=== PATIENT | female | born 1940 | race Caucasian/White ===

== ENCOUNTER 2016-06-13 18:42 | Emergency (ER) | payer MEDICARE ==
[~2016-06-13] VITALS: Ht 152.4 cm; Wt 45.4 kg
[2016-06-13] MEDS ORDERED: LORAZEPAM 1 MG TABLET PO ONE (19:30)
[2016-06-14 04:00] VITALS: BP 118/98
== END 2016-06-14 07:46 | disposition home or self-care (01) ==
LOC: ER 18:47
DX: S16.1XXA Strain of muscle, fascia and tendon at neck level, initial encounter (principal); I10 Essential (primary) hypertension; I48.91 Unspecified atrial fibrillation; I34.1 Nonrheumatic mitral (valve) prolapse; Z95.0 Presence of cardiac pacemaker; M19.90 Unspecified osteoarthritis, unspecified site; Z90.710 Acquired absence of both cervix and uterus; Z98.890 Other specified postprocedural states; Z88.8 Allergy status to other drugs, medicaments and biological substances; Z88.6 Allergy status to analgesic agent; V49.50XA Passenger injured in collision with unspecified motor vehicles in traffic accident, initial encounter; Y93.89 Activity, other specified; Y92.413 State road as the place of occurrence of the external cause; Y99.8 Other external cause status
CPT/HCPCS: 99284; A4606; Z7610

== ENCOUNTER 2016-10-27 23:10 | Emergency (ER) | payer MEDICARE ==
[~2016-10-27] VITALS: Ht 152.4 cm; Wt 47.6 kg
[2016-10-27 23:12] VITALS: BP 146/87
--- NOTE | 2016-10-27 23:15 | NUR ---
76 YO FEMALE ALERT X 3. PT BIBA#102, PT C/O FEELING LIKE SHE IS BREATHING FAST AND HER HR IS FAST AND FEELING ANXIOUS. PT AMBULATED TO ER BED WITH STEADY GAIT, SKIN WARM AND DRY, RR EVEN AND UNLABORED. PT GOWNED, PLACED ON SOUND CONTROLLER. AWAITING ORDERS FROM PROVIDER
--- NOTE | 2016-10-27 23:32 | NUR ---
EMT AT BED SIDE FOR EKG
--- NOTE | 2016-10-27 23:33 | NUR ---
MD CORONA AT BED SIDE FOR EVAL
[2016-10-27] MEDS ORDERED: ALPRAZOLAM 0.25 MG TABLET ONE (23:38)
[2016-10-27] MEDS ORDERED: NITROGLYCERIN PACKET 1 GM PACKET ONE (23:38)
[2016-10-28] MEDS ORDERED: ALPRAZOLAM 0.25 MG TABLET PO ONE
[2016-10-28] MEDS ORDERED: NITROGLYCERIN PACKET 1 GM PACKET TD ONE
[2016-10-28 00:18] LABS: BASOPHILS # (AUTO) 0.1 /CMM (0.0-0.2); BASOPHILS % (AUTO) 1.2 % (0.0-2.0); EOSINOPHILS # (AUTO) 0.1 /CMM (0.0-0.7); EOSINOPHILS % (AUTO) 1.4 % (0.0-6.0); HEMATOCRIT 37 % (33-45); HEMOGLOBIN 12.2 g/dL (11.5-14.8); LYMPHOCYTES % (AUTO) 23.6 % (20.0-44.0); MEAN CORPUSCULAR HEMOGLOBIN 31 PG (26.0-33.0); MEAN CORPUSCULAR HGB CONC 33 g/dl (31.0-36.0); MEAN CORPUSCULAR VOLUME 93 fL (82-100); MONOCYTES # (AUTO) 0.3 /CMM (0.1-1.30); MONOCYTES % (AUTO) 8.2 % (2.0-12.0); NEUTROPHILS # (AUTO) 2.7 /CMM (1.8-8.9); NEUTROPHILS % (AUTO) 65.6 % (43.0-81.0); PLATELET COUNT (AUTO) 109 /CMM (150-450); RDW COEFFICIENT OF VARIATION 15.3 (11.5-15.0); RED BLOOD CELL COUNT(AUTO) 4.01 MIL/uL (4.0-5.2); WHITE BLOOD COUNT (AUTO) 4.1 K/uL (4.3-11.0)
--- NOTE | 2016-10-28 00:21 | NUR ---
PT REFUSED MEDICATION
[2016-10-28 00:27] LABS: CALCIUM, SERUM 9.2 mg/dL (8.5-10.1); CARBON DIOXIDE 29 mmol/L (21-32); CHLORIDE 106 mmol/L (98-107); CREATININE 0.8 mg/dL (0.6-1.3); GLUCOSE 124 mg/dL (74-106); POTASSIUM 4.1 mmol/L (3.5-5.1); SODIUM SERUM 141 mmol/L (136-145); UREA NITROGEN, BLOOD 25 mg/dL (7-18)
[2016-10-28 00:31] LABS: D-DIMER 0.33 mg/L(FEU (0.17-0.50); INR 1.8 (0.87-1.13)
[2016-10-28 00:35] LABS: TROPONIN I < 0.017 ng/mL (0.00-0.056)
[2016-10-28 00:40] LABS: ALANINE AMINOTRANSFERASE 28 U/L (12-78); ALBUMIN 3.8 g/dL (3.4-5.0); ALKALINE PHOSPHATASE 133 U/L (46-116); ASPARTATE AMINOTRANSFERASE 30 U/L (15-37); B-TYPE NATRIURETIC PEPTIDE 3501 PG/ML (0-125); BILIRUBIN,DIRECT 0.2 mg/dL (0.0-0.2); TOTAL PROTEIN, SERUM 6.4 g/dL (6.4-8.2)
--- NOTE | 2016-10-28 01:07 | NUR ---
report given to rajan ragland for shant
== END 2016-10-28 01:06 | disposition home or self-care (01) ==
LOC: ER 23:12
DX: I48.91 Unspecified atrial fibrillation (principal); F41.9 Anxiety disorder, unspecified; R06.00 Dyspnea, unspecified; I10 Essential (primary) hypertension; I34.1 Nonrheumatic mitral (valve) prolapse; M19.90 Unspecified osteoarthritis, unspecified site; Z95.0 Presence of cardiac pacemaker; Z90.710 Acquired absence of both cervix and uterus; Z88.8 Allergy status to other drugs, medicaments and biological substances
CPT/HCPCS: 36415; 71010-TC; 80048-TC; 80076-TC; 83880; 84484-TC; 85025-TC; 85378-TC; 85730-TC; A4606; Z7610

== ENCOUNTER 2017-04-08 22:47 | Emergency (ER) | payer MEDICARE ==
[~2017-04-08] VITALS: Ht 157.5 cm; Wt 47.6 kg
[2017-04-09 04:27] VITALS: BP 148/82
--- NOTE | 2017-04-09 04:27 | NUR ---
PT KAREN#102 FROM HOME, PER PT SHE STATED GOT ANXIOUS WHILE WATCHING TV. PT AOX3 RR EVEN AND UNLABORED. NOTED ANXIOUS. NAD NOTED. NO NVD AT THIS TIME. PT NOT DIAPHORETIC. PT WAITING FOR MD BRUNO.
--- NOTE | 2017-04-09 04:47 | NUR ---
Patient discharged to home in stable condition. Written and verbal after care instructions given. Patient verbalizes understanding of instruction. ambulatory with a steady gait
== END 2017-04-09 04:48 | disposition home or self-care (01) ==
LOC: ER 22:49
DX: I48.2 Chronic atrial fibrillation (principal); F41.9 Anxiety disorder, unspecified; M19.90 Unspecified osteoarthritis, unspecified site; I10 Essential (primary) hypertension; I34.1 Nonrheumatic mitral (valve) prolapse; Z95.0 Presence of cardiac pacemaker; Z88.8 Allergy status to other drugs, medicaments and biological substances; Z98.890 Other specified postprocedural states; Z90.710 Acquired absence of both cervix and uterus
CPT/HCPCS: 93005; 99284; A4606; Z7610

== ENCOUNTER 2017-06-19 12:09 | Inpatient (IN) | payer MEDICARE ==
[~2017-06-19] VITALS: Ht 156.2 cm; Wt 48.5 kg
--- NOTE | 2017-06-19 12:22 | NUR ---
BBIBRA FROM HOME ACCOMPANIED BY CAREGIVER DT ALTERED MENTAL STATUS X 4 DAYS. PATIENT RECEIVED AWAKE AND ALERT. APPEARS IN NO DISTRESS. RESPIRATION EVEN AND UNLABORED. SKIN IS WARM TO TOUCH AND NON DIAPHORETIC. PT IS AFEBRILE. CONNECTED PT TO TELE MONITOR. PENDING MD BRUNO
--- NOTE | 2017-06-19 12:32 | NUR ---
EKG IN PROGRESS
[2017-06-19] MEDS ORDERED: DIGO125T PO (12:38)
[2017-06-19] MEDS ORDERED: FURO-145 PO (12:38)
[2017-06-19] MEDS ORDERED: CARV12.52 PO (12:38)
[2017-06-19] MEDS ORDERED: RIVA10TA PO (12:38)
--- NOTE | 2017-06-19 12:40 | NUR ---
PATIENT WAS TAKEN TO CT
[2017-06-19 12:44] LABS: BASOPHILS # (AUTO) 0.1 /CMM (0.0-0.2); BASOPHILS % (AUTO) 1.7 % (0.0-2.0); EOSINOPHILS % (AUTO) 0.1 % (0.0-6.0); HEMATOCRIT 48 % (33-45); LYMPHOCYTES # (AUTO) 0.7 /CMM (0.8-4.8); LYMPHOCYTES % (AUTO) 9.8 % (20.0-44.0); MEAN CORPUSCULAR HEMOGLOBIN 30 PG (26.0-33.0); MEAN CORPUSCULAR HGB CONC 33 g/dl (31.0-36.0); MEAN CORPUSCULAR VOLUME 91 fL (82-100); MONOCYTES # (AUTO) 0.7 /CMM (0.1-1.30); MONOCYTES % (AUTO) 9.6 % (2.0-12.0); NEUTROPHILS # (AUTO) 5.4 /CMM (1.8-8.9); NEUTROPHILS % (AUTO) 78.8 % (43.0-81.0); PLATELET COUNT (AUTO) 134 /CMM (150-450); RDW COEFFICIENT OF VARIATION 14.8 (11.5-15.0); RED BLOOD CELL COUNT(AUTO) 5.26 MIL/uL (4.0-5.2); WHITE BLOOD COUNT (AUTO) 6.9 K/uL (4.3-11.0)
[2017-06-19 12:55] LABS: INR 1.48 (0.85-1.15)
[2017-06-19 12:57] LABS: CALCIUM, SERUM 9.8 mg/dL (8.5-10.1); CARBON DIOXIDE 30 mmol/L (21-32); CHLORIDE 105 mmol/L (98-107); CREATININE 0.9 mg/dL (0.6-1.3); GLUCOSE 161 mg/dL (74-106); POTASSIUM 4.3 mmol/L (3.5-5.1); SODIUM SERUM 140 mmol/L (136-145); UREA NITROGEN, BLOOD 34 mg/dL (7-18)
[2017-06-19 13:01] LABS: TROPONIN I < 0.017 ng/mL (0.00-0.056)
[2017-06-19 13:03] LABS: ALANINE AMINOTRANSFERASE 20 U/L (12-78); ALKALINE PHOSPHATASE 118 U/L (46-116); ASPARTATE AMINOTRANSFERASE 31 U/L (15-37); BILIRUBIN,DIRECT 0.7 mg/dL (0.0-0.2); BILIRUBIN,TOTAL 1.6 mg/dL (0.2-1.0); TOTAL PROTEIN, SERUM 6.4 g/dL (6.4-8.2)
--- NOTE | 2017-06-19 13:12 | NUR ---
CALLED NURSING FINE GRADE OPERATOR REQUESTING A BED.
--- NOTE | 2017-06-19 13:25 | NUR ---
URINE SAMPLE SENT T0; LAB
--- NOTE | 2017-06-19 13:27 | NUR ---
CALLED [employer] CONCRETE MIXER WAS PAGED.
[2017-06-19 13:50] LABS: APPEARANCE,URINE CLEAR (CLEAR); BILIRUBIN,URINE 1+ (NEGATIVE); BLOOD, URINE 2+ Ery/uL (NEGATIVE); COLOR,URINE YELLOW (YELLOW); KETONES,URINE NEGATIVE (NEGATIVE); LEUKOCYTE ESTERASE ,URINE NEGATIVE (NEGATIVE); NITRITE, URINE NEGATIVE (NEGATIVE); PH,URINE 5.5 (5.0-8.0); PROTEIN,URINE 1+ mg/dl (NEGATIVE); UGLUCOSE NEGATIVE (NEGATIVE)
--- NOTE | 2017-06-19 13:53 | NUR ---
PATIENT TRANSPORTED TO TELE. S
[2017-06-19] MEDS ORDERED: ASPIRIN 325 MG TABLET PO ONE (14:00)
[2017-06-19] MEDS ORDERED: ASPIRIN EC 325 MG TABLET.DR PO ONE (14:01)
[2017-06-19 14:32] LABS: BACTERIA,URINE Rare /HPF (None Seen); SQUAMOUS EPITHELIAL CELL,UR Few /HPF (None Seen); WBC,URINE 0-2 /HPF (0-3)
--- NOTE | 2017-06-19 15:00 | NUR ---
FOOD EQUIPMENT SERVICE TECHNICIAN NOTES PATIENT ADMITTED TO UNIT, ARRIVED AT 1415 VIA GURNEY. PATIENT AFEBRILE, SKIN DRY AND WARM TO TOUCH. ALERT TO SELF BUT NOT TO CURRENT SITUATION, PLACE. REORIENTED NEEDED. PATIENT BREATHING EVEN AND UNLABORED. DENIES ANY PAIN OR DISCOMFORT. ACCOMPANIED BY CAREGIVER (VERITO). SKIN ASSESSMENT DONE, PICTURES FILED IN CHART. IV SITE ON RIGHT FOREARM INTACT, NO BLEEDING OR SWELLING NOTED. WILL CONTINUE TO MONITOR. PATIENT KEPT CLEAN, DRY AND COMFORTABLE. PROVIDED WITH CALM, SAFE, HAZARD-FREE ENVIRONMENT. BED LOCKED AND IN LOW POSITION, BILATERAL UPPER SIDE RAILS UP AND LOCKED. CALL LIGHT WITHIN EASY REACH
[2017-06-19 15:30] VITALS: BP 113/74
[2017-06-19] MEDS ORDERED: ENOXAPARIN SODIUM 40 MG/0.4 ML DISP.SYRIN SQ SCH (17:00)
[2017-06-19] MEDS: CARVEDILOL 12.5 MG TABLET PO SCH (18:05)
--- NOTE | 2017-06-19 18:15 | NUR ---
MS TOOLING SUPERVISOR NOTES PLACED CALL TO [facility] TO LEAVE MESSAGE FOR DR. ESPINOZA REGARDING PATIENT'S DIET AND TO VERIFY MEDICATION ORDERS. AWAITING FOR CALL BACK.
[2017-06-19] MEDS: RIVAROXABAN 15 MG TABLET PO SCH (18:22)
--- NOTE | 2017-06-19 19:15 | NUR ---
COPY COORDINATOR NOTES COTTRELL OPERATOR PRESENT AT UNIT. VERBALIZED THAT MRI CANNOT BE DONE PATIENT DOES NOT HAVE PACEMAKER CARD INFO WITH HER. PATIENT UNABLE TO PROPERLY VERIFY WHERE PACEMAKER CARD IS, ALSO UNABLE TO VERIFY WHERE SHE GOT THE PACEMAKER. PLACED CALL TO CAREGIVER VERITO AND ALSO VERBALIZED THAT SHE DOES NOT KNOW WHERE THE PACEMAKER CARD IS. VERBALIZED THAT PACEMAKER WAS PLACED AT [facility] BUT SHE DOESNT KNOW WHICH OFFICE. AWAITING FOR CALL BACK FROM DR. ESPINOZA TO NOTIFY REGARDING PATIENT CONDITION AND STATUS.
--- NOTE | 2017-06-19 19:30 | NUR ---
LAUNCHMAN NOTES PATIENT RESTING INSIDE ROOM, HAVING ULSTRASOUND DONE. BREATHING EVEN AND UNLABORED. NO SOB OR ACUTE DISTRESS NOTED. DENIES ANY PAIN OR DISCOMFORT. PATIENT AFEBRILE, SKIN DRY AND WARM TO TOUCH. ENDORSED TO INCOMING SHIFT. BED LOCKED AND IN LOW POSITION, BILATERAL UPPER SIDE RAILS UP AND LOCKED. CALL LIGHT WITHIN EASY REACH.
--- NOTE | 2017-06-19 19:34 | NUR ---
TELE/RN OPENING NOTES PATIENT IN BED. ALERT, ORIENTED X2, HAVING TEST BY BED SIDE, REPORTED FEELING HUNGRY, AM RN DISCUSSED PLAN OF CARE, REPORTED MRI OF BRAIN WITHOUT CONTRAST WAS NOT DONE DUE TO PACE MAKER AND CARED NOT ABLE TO READ, TO FOLLOW UP WITH ROLAN AND INFORM STRAIGHTENING PRESS OPERATOR HELPER MD, WILL CONTINUE TO MONITOR AND PROVIDE CARE. TELE AFIB , NO DIET ORDER , WILL NEED TO FOLLOW UP AND IV FLUIDS.
[2017-06-19 20:00] VITALS: BP 133/74
--- NOTE | 2017-06-19 20:25 | NUR ---
INITIAL ECHO FINDING SHOWED EF 60% WITH MODERATE PLEURAL EFFUSION. INFORMED ATTENDING NURSE (ALEJANDRA) OF RESULTS.
--- NOTE | 2017-06-19 21:18 | NUR ---
TELE/RN NOTES MD TEIXEIRA CONTACTED AND REPORTED PATIENT, ECG RESULT WITH PLEURAL EFFUSION, NOT ABLE TO DO THE MRI OF HEAD WITHOUT CONTRAST DUE TO PACEMAKER CARD UNABLE TO READ, INFORMED WITH NO NEW ORDER,
[2017-06-19] MEDS: BLOOD SUGAR DIAGNOSTIC 1 EACH STRIP IN SCH ×2 (22:30→22:34)
[2017-06-19] MEDS: SIMVASTATIN 20 MG TABLET PO SCH (22:37)
[2017-06-20] VITALS: BP 127/89
--- NOTE | 2017-06-20 | NUR ---
TELE/RN NOTES MD TEIXEIRA CONTACTED INFORM PATIENT IS DM, AFIB, AMS,BLOOD SUGAR RESULT AT 149.
--- NOTE | 2017-06-20 00:09 | NUR ---
TELE/RN NOTES MD, BINDER FOLDER OPERATOR PUNEET CONTACTED AND REPORTED PATIENT UNABLE TO TOLERATE LIQUID, COUGHING, BUN ELEVATED AT 34, ORDER FOR SWALLOWING EVAL IN AM, NPO DIET, AND IVF AT D5 1/2NS AT 75CC/HR. ORDER CARRIED OUT.
[2017-06-20] MEDS: BLOOD SUGAR DIAGNOSTIC 1 EACH STRIP IN SCH ×7 (00:34→22:17)
[2017-06-20] MEDS: IV D5/0.45 NACL 1,000 ML IV PRN ×2 (00:36→15:08)
[2017-06-20 04:00] VITALS: BP 126/99
--- NOTE | 2017-06-20 06:25 | NUR ---
TELE/RN NOTES PATIENT IN BED, ABLE TO SLEEP MAAME LEAST 6 HOURS, WITH DRY COUGH, BLOOD SUGAR CHECK AT 134, RESPIRATIONS EVEN AND UNLABORED, ON 2L OXYGEN FOR COMFORT, ALERTX1, REQUIRE FREQUENT REORIENTATION, CALL LIGHTS WITHIN REACH, BED IN LOCK POSITION, WILL CONTINUE TO MONITOR.IV D5 1/2 NS RUNNING AT 75ML/HR
[2017-06-20 06:36] LABS: CALCIUM, SERUM 9.1 mg/dL (8.5-10.1); CARBON DIOXIDE 30 mmol/L (21-32); CHLORIDE 105 mmol/L (98-107); CREATININE 0.7 mg/dL (0.6-1.3); GLUCOSE 142 mg/dL (74-106); SODIUM SERUM 142 mmol/L (136-145); UREA NITROGEN, BLOOD 29 mg/dL (7-18)
[2017-06-20 06:44] LABS: CHOLESTEROL 137 mg/dL (<200); HDL CHOLESTEROL 33 mg/dL (40-60); LDL 94 mg/dL (0-99); TRIGLYCERIDES 100 mg/dL (30-150)
[2017-06-20 06:51] LABS: INR 1.27 (0.87-1.13)
--- NOTE | 2017-06-20 07:35 | NUR ---
TELE/RN OPENING NOTE PATIENT IN BED IN STABLE CONDITION. A/O X 1-2 WITH EPISODES OF FORGETFULNESS AND CONFUSION. NO SIGNS OF ACUTE DISTRESS. NO COMPLAIN OF PAIN OR DISCOMFORT. ON TELE MONITOR WITH AFIB WITH PACING. TOLERATING WELL. ALL NEEDS ATTENDED TO. CALL LIGHT WITHIN REACH. WILL CONTINUE TO MONITOR TO ENSURE SAFETY.
[2017-06-20] MEDS: DOCUSATE SODIUM 100 MG CAPSULE PO SCH (08:11)
[2017-06-20] MEDS: CARVEDILOL 12.5 MG TABLET PO SCH ×2 (08:11→16:14)
[2017-06-20] MEDS: FUROSEMIDE 20 MG TABLET PO SCH (08:12)
[2017-06-20] MEDS: PANTOPRAZOLE 40 MG VIAL IV SCH (08:24)
[2017-06-20 08:25] VITALS: BP 137/67
--- NOTE | 2017-06-20 08:45 | NUR ---
TELE/RN NURSING SWALLOW EVAL PATIENT CONTINUOUSLY REQUESTING FOR BREAKFAST AND VERBALIZING SHE CAN EAT WELL. DR JOHNSON AT BEDSIDE. PER DR JOHNSON, LET'S TRY GIVING PATIENT WATER, APPLESAUCE AND CRACKER. PATIENT TOLERATED THE WATER, APPLESAUCE, AND CRACKER WELL. STARTED DIET ORDER [facility] SOFT CARDIAC DIET.
[2017-06-20] MEDS ORDERED: ASPIRIN EC 325 MG TABLET.DR PO SCH (09:00)
[2017-06-20 10:07] LABS: BASOPHILS % (AUTO) 0.1 % (0.0-2.0); EOSINOPHILS % (AUTO) 0.1 % (0.0-6.0); HEMATOCRIT 45 % (33-45); HEMOGLOBIN 14.6 g/dL (11.5-14.8); LYMPHOCYTES # (AUTO) 0.7 /CMM (0.8-4.8); LYMPHOCYTES % (AUTO) 9.5 % (20.0-44.0); MEAN CORPUSCULAR HEMOGLOBIN 31 PG (26.0-33.0); MEAN CORPUSCULAR HGB CONC 33 g/dl (31.0-36.0); MEAN CORPUSCULAR VOLUME 93 fL (82-100); MONOCYTES # (AUTO) 0.7 /CMM (0.1-1.30); MONOCYTES % (AUTO) 9.4 % (2.0-12.0); NEUTROPHILS # (AUTO) 5.8 /CMM (1.8-8.9); NEUTROPHILS % (AUTO) 80.9 % (43.0-81.0); PLATELET COUNT (AUTO) 146 /CMM (150-450); RDW COEFFICIENT OF VARIATION 16.1 (11.5-15.0); RED BLOOD CELL COUNT(AUTO) 4.78 MIL/uL (4.0-5.2); WHITE BLOOD COUNT (AUTO) 7.2 K/uL (4.3-11.0)
--- NOTE | 2017-06-20 10:30 | NUR ---
TELE/RN SPOKE WITH DR ESPINOZA SPOKE WITH DR ESPINOZA AND MADE AWARE PER PHARMACY PATIENT IS ON XARELTO, ASA 325 AND LOVENOX, IF OKAY TO CONTINUE ALL. PER DR ESPINOZA DC ASA AND LOVENOX AND CONTINUE XARELTO.
[2017-06-20 11:31] LABS: ALBUMIN 2.6 g/dL (3.4-5.0); BILIRUBIN,DIRECT 0.5 mg/dL (0.0-0.2); BILIRUBIN,TOTAL 1.3 mg/dL (0.2-1.0); TOTAL PROTEIN, SERUM 5.5 g/dL (6.4-8.2)
[2017-06-20] MEDS: DIGOXIN 0.125 MG TABLET PO SCH (12:07)
--- NOTE | 2017-06-20 12:50 | NUR ---
TELE/RN SPOKE WITH DR ESPINOZA SPOKE WITH DR ESPINOZA AND MADE AWARE PATIENT NOTED WITH CONGESTED COUGH WITH THIN THICK SECRETIONS WITH NEW ORDERS FOR ALBUTEROL 2.5 VIA NEBULIZER Q 4 HR ROUTINE AND MUCOMYST 20% PO Q 12 HRS. ROUTINE.
[2017-06-20] MEDS: ALBUTEROL FS 2.5 MG/0.5 ML VIAL.NEB NEB SCH ×3 (15:16→23:37)
[2017-06-20] MEDS: RIVAROXABAN 15 MG TABLET PO SCH (16:20)
[2017-06-20 16:49] VITALS: BP 130/87
--- NOTE | 2017-06-20 16:52 | NUR ---
Allocations Clerk Consult requested from Dr. Hope in regards to stroke. Pt is a 76 year old female who was admitted to [facility] due to altered mental status x4 days. Patient is orientedx2. Patient was unsure of why she was in the hospital and what day it was. Pt. denies any suicidal or homicidal ideation. Pt denies any auditory or visual hallucinations. Per Dr. Mccall stroke was ruled out. Physical Therapy recommended to ZACH Crowley that pt. needs SNF placement. Plan: SW will speak to Case Management in regards to finding placement for pt. No other health care social worker needs are requested at this time. SW is available if needed.
--- NOTE | 2017-06-20 18:45 | NUR ---
TELE/RN CLOSING NOTE PATIENT IN BED IN STABLE CONDITION. A/O X 1-2 WITH EPISODES OF CONFUSION AND FORGETFULNESS. NO SIGNS OF ACUTE DISTRESS. NO COMPLAIN OF PAIN OR DISCOMFORT. ON TELE MONITOR WITH AFIB PACING IN 70'S. ALL NEEDS ATTENDED TO. CALL LIGHT WITHIN REACH. WILL ENDORSE TO NEXT SHIFT FOR CONTINUITY OF CARE.
--- NOTE | 2017-06-20 18:47 | NUR ---
Met with patient, she is alert and pleasant. She lives on the 1st floor apartment. Patient is ambulatory and independent with adl's, no DME or homehealth reported. Patient still driving and active. Her pcp is Dr. Peña [phone]. Patient will need assistance with transportation if goes home. Addendum: 06/20/17 at 1848 by COLLEEN MENENDEZ RN Amended: Links added.
--- NOTE | 2017-06-20 19:30 | NUR ---
METAL CASKET ASSEMBLER INITIAL NOTES PT IS IN BED RESTING, EASILY AROUSED. ORIENTED X1-2 CONFUSED. NO SIGNS OF SOB OR DISTRESS, BREATHING EVENLY AND UNLABORED. TELE MONITOR SHOWS AFIB CONTROLLED WITH PACING. DENIES PAIN AT THIS TIME. BED IS IN LOW AND LOCKED POSITION, CALL LIGHT WITHIN REACH. WILL CONTINUE TO MONITOR PT.
[2017-06-20 20:00] VITALS: BP 116/69
[2017-06-20] MEDS: ACETYLCYSTEINE 20% ORAL SOLN 6,000 MG/30 ML VIAL PO SCH (21:00)
[2017-06-20] MEDS: SIMVASTATIN 20 MG TABLET PO SCH (22:17)
[2017-06-21] MEDS: ALBUTEROL FS 2.5 MG/0.5 ML VIAL.NEB NEB SCH ×5 (03:59→19:27)
[2017-06-21] MEDS: IV D5/0.45 NACL 1,000 ML IV PRN (04:16)
[2017-06-21] MEDS: BLOOD SUGAR DIAGNOSTIC 1 EACH STRIP IN SCH ×3 (06:10→16:48)
--- NOTE | 2017-06-21 06:23 | NUR ---
MACHINING TECHNICIAN CLOSING NOTES PT IS IN BED AWAKE AND ALERT, CONFUSED AND STATING THAT SHE WILL GET OUT OF BED WHENEVER SHE WANTS. NO SIGNS OF SOB OR DISTRESS, BREATHING EVENLY AND UNLABORED ON NC. TELE MONITOR SHOWING AFIB 73 CONTROLLED. IV ACCESS IS INTACT AND PATENT WITH FLUIDS INFUSING. ALL NEEDS WERE ANTICIPATED AND MET. BED IS IN LOW AND SCOTT POSITION, SIDE RAILS ARE UP . WILL ENDORSE TO DAYSHIFT
--- NOTE | 2017-06-21 07:36 | NUR ---
REPAIRER CYLINDER HEADS: INITIAL NOTE RECEIVED PT A/OX1-2. FORGETFUL. CONFUSED. TELE MONITORING A.FIB AT [address] INCONTINENT. DIAPER IN PLACE. BEDREST. MECHANICAL SOFT. R FA #[id number] RUNNING D5 1/2 NS AT 75ML/HR. SITE CLEAR AND PATENT. NO REDNESS NOTED. NO BLEEDING NOTED. NO DISTRESS NOTED. NO SOB NOTED. NO PAIN NOTED. RESTING COMFORTABLY IN BED. CALL LIGHT WITHIN REACH.
[2017-06-21 08:00] VITALS: BP 126/80
[2017-06-21] MEDS: ACETYLCYSTEINE 20% ORAL SOLN 6,000 MG/30 ML VIAL PO SCH (08:27)
[2017-06-21] MEDS: PANTOPRAZOLE 40 MG VIAL IV SCH (08:27)
[2017-06-21] MEDS: DOCUSATE SODIUM 100 MG CAPSULE PO SCH (08:27)
[2017-06-21] MEDS: FUROSEMIDE 20 MG TABLET PO SCH (08:27)
[2017-06-21] MEDS: CARVEDILOL 12.5 MG TABLET PO SCH ×2 (08:27→16:48)
[2017-06-21] MEDS: DIGOXIN 0.125 MG TABLET PO SCH (12:22)
--- NOTE | 2017-06-21 13:38 | NUR ---
PT REFUSED TO TAKE DIGOXIN MEDICATIONS FOR 1300. PT FORGET FULL. BELIEVES SHE TOOK MEDICATION IN THE MORNING. RE-ORIENTED THE PT TO THE TYPE OF MEDICATIONS PROVIDED IN THE AM. EDUCATION PROVIDED. PT STILL REFUSED. HEART RATE IS 74BPM.
[2017-06-21 16:00] VITALS: BP 118/65
[2017-06-21] MEDS: RIVAROXABAN 15 MG TABLET PO SCH (16:47)
[2017-06-21 18:30] VITALS: BP 118/65
--- NOTE | 2017-06-21 18:32 | NUR ---
MS RN: CLOSING NOTE PT TOOK MOST MEDICATIONS ON TIME. REFUSED DIGOXIN IN 1300. NO ADVERSE REACTIONS NOTED. TURNED AND REPOSITIONED Q2 HOURS NEEDED. A/OX1-2. SLIGHTLY FORGETFUL. INCONTINENT. MECH SOFT DIET. NO DISTRESS NOTED. NO SOB NOTED. NO PAIN NOTED. SET FOR D/C TO [facility]. ALL DISCHARGE PAPER WORK SIGNED AND PLACED IN CHART. SIGNED BY TWO RNS DUE TO PATIENTS CONDITION. UNABLE TO TAKE PICTURES OF SACRAL REDNESS OR L KNEE SCAB DUE TO PATIENT REFUSAL. PT STATED SHE DOES NOT WANT TO BE TOUCHED. PT REFUSING TO BE CLEANED BEFORE KISS MIXER TO FACILITY. R FA #[id number] HL. SITE CLEAR AND PATENT. NO IV FLUIDS.WILL ENDORSE TO NEXT SHIFT IF AMBULANCE DOES NOT ARRIVE BEFORE END OF SHIFT. RESTING COMFORTABLY IN BED. CALL LIGHT WITHIN REACH.
--- NOTE | 2017-06-21 19:40 | NUR ---
MS RN OPENING NOTE RECEIVED PATIENT IN BED, ALERT ORIENTED X1-2, ABLE TO STATE NAME AND WHERE SHE IS BUT IS VERY FORGETFUL, KEEPS ASKING THE SAME QUESTIONS OVER AND OVER. ON 3L OXYGEN VIA NC. NO DISTRESS OR DISCOMFORT NOTED OR REPORTED AT THIS TIME, DENIES SOB OR PAIN, RESPIRATIONS EVEN AND UNLABORED. PATIENT AWAITING TO BE TRANSFERRED. REFUSED TO BE CLEANED AND REFUSED PICTURES OF THE WOUNDS TO BE TAKEN. ALL DISCHARGE PAPERS SIGNED AN IN PLACE. RIGHT FA SL 18G, INTACT AND PATENT. SAFETY MEASURES IN PLACE, BED IN LOW LOCKED POSITION, SIDE RAILS UP X2, CALL LIGHT WITHIN EASY REACH, WILL CONTINUE TO MONITOR UNTIL AMBULANCE YARD FOREMAN.
--- NOTE | 2017-06-21 20:10 | NUR ---
MS RN NOTE. PATIENT BEING DISCHARGED AND TRANSFERRED TO [facility] VIA AMBULANCE. REPORT GIVEN AT BEDSIDE, PATIENT IN STABLE CONDITION WITH VITAL SIGNS OF: BP 106/52, HR 65, O2SAT 96%, RR 20. IN NO APPARENT DISTRESS OR DISCOMFORT, DENIES SOB OR PAIN. PATIENT IS SLIGHTLY CONFUSED AND FORGETFUL. REORIENTED AND EXPLAINED WHERE AND WHY SHES GOING TO THE OTHER FACILITY. IV LINE REMOVED. PATIENT CONTINUED TO REFUSE BEING CLEANED. ALL BELONGINGS CHECKED AND PLACED IN BEG TO BE TRANSFERRED WITH THE PATIENT. DISCHARGE FOLDER WITH SIGNED PAPERS WAS GIVEN TO THE AMBULANCE. PATIENT WAS TAKEN ON A GURNEY AND WAS DC-ED FROM [facility] AT 2014.
[2017-06-21] MEDS ORDERED: ACETYLCYSTEINE 20% SOLN 800 MG/4 ML VIAL PO SCH (21:00)
== END 2017-06-21 20:10 | DRG 73 ==
LOC: ER 12:15 → TELE 13:50 → MED 06-21 10:39
PROVIDERS: ADMIT Internal Medicine; ATTEND Internal Medicine
DX: G90.8 Other disorders of autonomic nervous system (principal); G93.41 Metabolic encephalopathy; D68.59 Other primary thrombophilia; I27.20 Pulmonary hypertension, unspecified; I48.2 Chronic atrial fibrillation; I50.32 Chronic diastolic (congestive) heart failure; I11.0 Hypertensive heart disease with heart failure; I48.91 Unspecified atrial fibrillation; Z95.0 Presence of cardiac pacemaker; Z79.01 Long term (current) use of anticoagulants; Z90.710 Acquired absence of both cervix and uterus; I34.0 Nonrheumatic mitral (valve) insufficiency
CPT/HCPCS: 36415; 70450-TC; 71045-TC; 80048-TC; 80061-TC; 80076-TC; 81000-TC; 82962-TC; 83605-TC; 84484-TC; 85025-TC; 85730-TC; 87040-TC; 87081-TC; 87086-TC; 92611-TC; 93307-TC; 93880-TC; 94799-TC; 97110-TC; 97112-TC; 97530-TC; A4606; C9113; J3490; Z7610

== ENCOUNTER 2017-07-17 11:56 | Outpatient (CLI) | payer MEDICARE ==
[~2017-07-17 11:56] MED LIST: CARV12.52 PO; DIGO125T PO; FURO-145 PO; RIVA10TA PO
== END 2017-07-17 23:59 | disposition home health service (06) ==
LOC: WOU 11:56
PROVIDERS: ATTEND Surgery
DX: L89.153 Pressure ulcer of sacral region, stage 3 (principal); R26.2 Difficulty in walking, not elsewhere classified; M62.50 Muscle wasting and atrophy, not elsewhere classified, unspecified site; Z79.82 Long term (current) use of aspirin; Z79.899 Other long term (current) drug therapy; I10 Essential (primary) hypertension; F03.90 Unspecified dementia, unspecified severity, without behavioral disturbance, psychotic disturbance, mood disturbance, and anxiety; I48.91 Unspecified atrial fibrillation
CPT/HCPCS: 11042; A6402

== ENCOUNTER 2017-07-24 13:07 | Outpatient (CLI) | payer MEDICARE | END 2017-07-24 23:59 | disposition home health service (06) | LOC: WOU 13:07 | PROVIDERS: ATTEND Surgery | DX: L89.153 Pressure ulcer of sacral region, stage 3 (principal); M62.50 Muscle wasting and atrophy, not elsewhere classified, unspecified site; R26.2 Difficulty in walking, not elsewhere classified; I48.91 Unspecified atrial fibrillation; I10 Essential (primary) hypertension; F03.90 Unspecified dementia, unspecified severity, without behavioral disturbance, psychotic disturbance, mood disturbance, and anxiety | CPT/HCPCS: 11042; A6402 ==

== ENCOUNTER 2017-08-11 14:00 | Outpatient (CLI) | payer MEDICARE | END 2017-08-11 23:59 | disposition home health service (06) | LOC: WOU 14:00 | PROVIDERS: ATTEND Surgery | DX: Z09 Encounter for follow-up examination after completed treatment for conditions other than malignant neoplasm (principal); Z87.2 Personal history of diseases of the skin and subcutaneous tissue; R26.2 Difficulty in walking, not elsewhere classified; M62.50 Muscle wasting and atrophy, not elsewhere classified, unspecified site; F03.90 Unspecified dementia, unspecified severity, without behavioral disturbance, psychotic disturbance, mood disturbance, and anxiety; I48.91 Unspecified atrial fibrillation; I10 Essential (primary) hypertension | CPT/HCPCS: A6402; G0463 ==

== ENCOUNTER 2017-08-29 09:58 | Inpatient (IN) | payer MEDICARE ==
[~2017-08-29] VITALS: Ht 157.5 cm; Wt 44.5 kg
--- NOTE | 2017-08-29 10:17 | NUR ---
BIB RA C/O R SHOULDER PAIN S/P GLF AT HOME . PLACED ON MONITOR. AWAITING MD ORDER
--- NOTE | 2017-08-29 10:41 | NUR ---
GAIL #20 IV ACCESS BLOOD SAMPLE COLLECTED SENT TO LAB
[2017-08-29 10:48] LABS: BASOPHILS # (AUTO) 0.1 /CMM (0.0-0.2); BASOPHILS % (AUTO) 1.4 % (0.0-2.0); EOSINOPHILS % (AUTO) 0.8 % (0.0-6.0); HEMATOCRIT 44 % (33-45); HEMOGLOBIN 14.3 g/dL (11.5-14.8); LYMPHOCYTES % (AUTO) 27.3 % (20.0-44.0); MEAN CORPUSCULAR HGB CONC 33 g/dl (31.0-36.0); MEAN CORPUSCULAR VOLUME 93 fL (82-100); MONOCYTES # (AUTO) 0.4 /CMM (0.1-1.30); MONOCYTES % (AUTO) 9.6 % (2.0-12.0); NEUTROPHILS # (AUTO) 2.2 /CMM (1.8-8.9); NEUTROPHILS % (AUTO) 60.9 % (43.0-81.0); PLATELET COUNT (AUTO) 113 /CMM (150-450); RDW COEFFICIENT OF VARIATION 18.5 (11.5-15.0); WHITE BLOOD COUNT (AUTO) 3.8 K/uL (4.3-11.0)
[2017-08-29 11:06] LABS: CALCIUM, SERUM 8.2 mg/dL (8.5-10.1); CARBON DIOXIDE 30 mmol/L (21-32); CHLORIDE 109 mmol/L (98-107); CREATININE 0.7 mg/dL (0.6-1.3); GLUCOSE 97 mg/dL (74-106); POTASSIUM 3.6 mmol/L (3.5-5.1); SODIUM SERUM 143 mmol/L (136-145); UREA NITROGEN, BLOOD 31 mg/dL (7-18)
[2017-08-29 11:08] LABS: INR 2.06 (0.85-1.15)
[2017-08-29 11:12] LABS: ALANINE AMINOTRANSFERASE 17 U/L (12-78); ALBUMIN 2.8 g/dL (3.4-5.0); ALKALINE PHOSPHATASE 79 U/L (46-116); ASPARTATE AMINOTRANSFERASE 23 U/L (15-37); BILIRUBIN,TOTAL 1.4 mg/dL (0.2-1.0); TOTAL PROTEIN, SERUM 5.1 g/dL (6.4-8.2)
--- NOTE | 2017-08-29 11:20 | NUR ---
PT BACK FROM CT
[2017-08-29 11:53] LABS: APPEARANCE,URINE Clear (CLEAR); BILIRUBIN,URINE SMALL (NEGATIVE); BLOOD, URINE Trace-lysed Ery/uL (NEGATIVE); KETONES,URINE Negative (NEGATIVE); LEUKOCYTE ESTERASE ,URINE Negative (NEGATIVE); NITRITE, URINE Negative (NEGATIVE); PROTEIN,URINE 30 mg/dl (NEGATIVE); UGLUCOSE Negative (NEGATIVE)
[2017-08-29 11:54] LABS: COLOR,URINE Dark Yellow (YELLOW)
[2017-08-29 11:56] LABS: BACTERIA,URINE Rare /HPF (None Seen); SQUAMOUS EPITHELIAL CELL,UR Few /HPF (None Seen); WBC,URINE 0-3 /HPF (0-3)
--- NOTE | 2017-08-29 12:45 | NUR ---
CALLED FOR FOOD TRAY
--- NOTE | 2017-08-29 13:21 | NUR ---
CALLED NURSING SUP. FOR MS BED
--- NOTE | 2017-08-29 13:21 | NUR ---
[facility] PAGED, CAMILO OCHOA MANAGER EMS
--- NOTE | 2017-08-29 13:29 | NUR ---
JORGE L NICHOLS, JUANI GARIBAY VIDEO GAME DEVELOPER
--- NOTE | 2017-08-29 13:45 | NUR ---
TELE 328-1 FOR ELBOW FX AND CONFUSION, CAMILO OCHOA ADMITTING
--- NOTE | 2017-08-29 13:54 | NUR ---
NEW ROOM 324-2
--- NOTE | 2017-08-29 14:09 | NUR ---
GAVE REPORT TO EDITH MEDINA 324-2 TELE ENCEPHALOPATHY LEFT ELBOW FRACTURE CAMILO OCHOA
[2017-08-29 15:00] VITALS: BP 102/74
--- NOTE | 2017-08-29 15:00 | NUR ---
ADMISSION NOTES PATIENT ADMITTED ON TELE FROM ER ON Dx. OF PLEURAL EFFUSION, Fx OF LEFT ELBOW AND SPLINT ON, PATIENT FAIL AT HOME. TELE MONITOR ON - . PATIENT 77 Y/OLD FEMALE A/O X3, FORGETFUL. PATIENT REFUSED PAIN AT THIS TIME. PATIENT HAS NO SOB AT THIS TIME, NO RESPIRATORY DISTRESS. V/S TAKEN BP-102/74, P-101, R-19, O2-97 ROOM AIR, T-97.3. SKIN ASSESSMENT DONE PICTURE TAKEN. PATIENT HAS BILATERAL LEGS EDEMA, KEEP ELEVATED USING PILLOWS. NEEDS ATTENDED AND ANTICIPATED. PATIENT ON O2-2LNC. ASSIST TURN AND REPOSTION Q 2 HR. PATIENT INCONTINENT USING DIAPER APPLIED Z-GUARD. PRIVATE PUMPER BREWERY NEXT TO THE BED, CALL LIGHT WITHIN TO REACH CONTINUED MONITORING.
[2017-08-29] MEDS ORDERED: Z GUARD REMEDY 2 OZ OINT TP PRN (15:30)
[2017-08-29] MEDS ORDERED: ACETAMINOPHEN 325 MG TABLET PO PRN (15:30)
[2017-08-29] MEDS ORDERED: MAGNESIUM HYDROXIDE 30 ML UDC PO PRN (15:30)
[2017-08-29] MEDS ORDERED: ONDANSETRON HCL/PF 4 MG/2 ML VIAL IVP PRN (15:30)
[2017-08-29] MEDS ORDERED: HYDROCODONE/APAP 5/325MG 1 EACH TABLET PO PRN (15:30)
[2017-08-29] MEDS ORDERED: MAG HYDROX/AL HYDROX/SIMETH 30 ML UDC PO PRN (15:30)
[2017-08-29 16:00] VITALS: BP 105/63
[2017-08-29] MEDS: CARVEDILOL 12.5 MG TABLET PO SCH (18:25)
[2017-08-29] MEDS: FUROSEMIDE 40 MG/4 ML VIAL IV SCH (18:25)
--- NOTE | 2017-08-29 18:30 | NUR ---
RN NOTES PATIENT IN THE BED NO ACUTE RESPIRATORY DISTRESS,O2-2LNC. HOB KEEP ELEVATED. SCHEDULED MEDICATION ADMINISTERED, V/S STABLE. NEEDS ATTENDED AND ANTICIPATED. ASSIST TURN AND REPOSTION Q 2 HR. KEEP RIGHT ARM, AND LOWER EXTREMITIES ELEVATED. PATIENT REFUSED PAIN AT THIS TIME. PRIVET CABLE MAKER NEXT TO THE BED. CALL LIGHT WITHIN TO REACH. ENDORSED ONCOMING NURSE FOR PLAN OF CARE.
--- NOTE | 2017-08-29 19:40 | NUR ---
TELE/RN OPENING NOTES PT RECEIVED AWAKE, SEMI FOWLERS. A/OX2. CAREGIVER AT BEDSIDE. ON 2L O2 VIA NC, BREATHING EVEN AND UNLABORED. LEFT ARM IN SPLINT. ON TELE MONITOR SHOWING A.FIB HR 94. IV TO RIGHT HAND PATENT AND INTACT. BED IN LOW/LOCKED POSITION WITH CALL LIGHT IN REACH. SIDE RAILS UPX2. WILL CONTINUE TO MONITOR
[2017-08-29 20:00] VITALS: BP 109/74
[2017-08-30] VITALS: BP 110/71
[2017-08-30 06:59] LABS: BASOPHILS % (AUTO) 0.9 % (0.0-2.0); EOSINOPHILS % (AUTO) 1.1 % (0.0-6.0); HEMATOCRIT 45 % (33-45); LYMPHOCYTES # (AUTO) 1.2 /CMM (0.8-4.8); LYMPHOCYTES % (AUTO) 33.1 % (20.0-44.0); MEAN CORPUSCULAR HGB CONC 33 g/dl (31.0-36.0); MEAN CORPUSCULAR VOLUME 94 fL (82-100); MONOCYTES # (AUTO) 0.4 /CMM (0.1-1.30); NEUTROPHILS # (AUTO) 1.9 /CMM (1.8-8.9); NEUTROPHILS % (AUTO) 54.9 % (43.0-81.0); PLATELET COUNT (AUTO) 111 /CMM (150-450); RDW COEFFICIENT OF VARIATION 19.7 (11.5-15.0); RED BLOOD CELL COUNT(AUTO) 4.82 MIL/uL (4.0-5.2); WHITE BLOOD COUNT (AUTO) 3.5 K/uL (4.3-11.0)
[2017-08-30 07:03] LABS: CHOLESTEROL 158 mg/dL (<200); HDL CHOLESTEROL 43 mg/dL (40-60); LDL 99 mg/dL (0-99); TRIGLYCERIDES 123 mg/dL (30-150)
[2017-08-30] MEDS ORDERED: BUPIVACAINE 0.25% 75 MG/30 ML VIAL ONE (07:05)
[2017-08-30] MEDS ORDERED: BACITRACIN 50000 UNITS/VIAL ONE (07:05)
[2017-08-30 07:07] LABS: INR 1.39 (0.87-1.13)
--- NOTE | 2017-08-30 07:07 | NUR ---
TELE/RN CLOSING NOTES PT AWAKE, A/OX2-3, FORGETFUL. ON 2L O2 VIA NC, BREATHING EVEN AND UNLABORED. DENIES SOB OR PAIN AT THIS TIME. IV TO RIGHT HAND PATENT AND INTACT. PT SCHEDULED FOR LEFT ELBOW ORIF, CONSENTS SIGNED AND IN THE CHART, HOWEVER PT NOW REFUSING SURGERY AND WOULD LIKE TO SPEAK TO THE DOCTOR THIS AM. DAY SHIFT RN AWARE. ON TELE MONITOR SHOWING A.FIB, HR 90'S. REMAINED NPO POST MIDNIGHT. NO SIGNIFICANT CHANGES OVERNIGHT. BED REMAINS IN LOW/LOCKED POSITION WITH CALL LIGHT IN REACH. SPLINT TO LEFT ARM IN PLACE. WILL ENDORSE TO DAY SHIFT RN VANESA.
[2017-08-30 07:11] LABS: CALCIUM, SERUM 8.8 mg/dL (8.5-10.1); CARBON DIOXIDE 38 mmol/L (21-32); CHLORIDE 105 mmol/L (98-107); CREATININE 0.8 mg/dL (0.6-1.3); GLUCOSE 87 mg/dL (74-106); MAGNESIUM 1.3 mg/dL (1.8-2.4); PHOSPHORUS 3.3 mg/dL (2.5-4.9); POTASSIUM 3.6 mmol/L (3.5-5.1); SODIUM SERUM 144 mmol/L (136-145); UREA NITROGEN, BLOOD 29 mg/dL (7-18)
--- NOTE | 2017-08-30 07:11 | NUR ---
IRRIGATION TAX ASSESSOR COLLECTOR OPENING NOTE RECEIVED BEDSIDE SBAR REPORT ON THE PATIENT. PATIENT IS CONFUSED AND FORGETFUL. PATIENT IS AWAKE AND RESPONSIVE IN BED. BED IS LOCKED, IN LOWEST POSITION, SIDE RAILS UP X3, BED ALARM IS ON. CALL LIGHT WITHIN REACH. EDUCATED THE PATIENT TO USE THE CALL LIGHT TO CALL FOR ASSISTANCE. EXTERNAL NIP WRAPPER READING CONTROLLED AFIB 92 BPM. REPORTS PAIN RATING 4-5/10 IN LEFT ELBOW. PRESENTS WITH LEFT ELBOW FRACTURE. LEFT ELBOW IN SPLINT. ALL NEEDS ARE MET. SPO2 94 % ON 2L. WILL CONTINUE TO ASSESS/MONITOR THROUGHOUT THE SHIFT.
[2017-08-30 07:17] LABS: DIGOXIN 0.02 ng/mL (0.90-2.00)
[2017-08-30 08:00] VITALS: BP 106/67
[2017-08-30] MEDS: FUROSEMIDE 40 MG/4 ML VIAL IV SCH (08:53)
[2017-08-30] MEDS: CARVEDILOL 12.5 MG TABLET PO SCH ×2 (08:54→17:03)
[2017-08-30] MEDS ORDERED: FUROSEMIDE 20 MG TABLET PO SCH (09:00)
--- NOTE | 2017-08-30 09:04 | NUR ---
PATIENT COMPLAINED OF PAIN IN LEFT ELBOW RATING 10/10. NORCO ADMINISTERED ORDERED.
--- NOTE | 2017-08-30 09:12 | NUR ---
SURGERY RESCHEDULED BY DR CRABTREE. NO EXACT DATE AVAILABLE AT THIS TIME.
[2017-08-30] MEDS ORDERED: BUMETANIDE INJ 8 MG in IV NS 0.9% 48 ML IV ONE (09:30)
[2017-08-30] MEDS: POTASSIUM CHLORIDE 20 MEQ TAB.PRT.SR PO SCH ×2 (10:03→11:17)
[2017-08-30] MEDS: DIGOXIN 0.125 MG TABLET PO SCH (12:22)
[2017-08-30] MEDS: Magnesium 1GM/D5W 100ML PREMIX 100 ML IV SCH ×4 (12:22→15:48)
[2017-08-30 16:00] VITALS: BP 97/68
--- NOTE | 2017-08-30 18:56 | NUR ---
MS RN CLOSING NOTE PATIENT IS CONFUSED AND FORGETFUL. PATIENT IS AWAKE AND RESPONSIVE IN BED. BED IS LOCKED, IN LOWEST POSITION, SIDE RAILS UP X3, BED ALARM IS ON. CAREGIVER AT THE BEDSIDE. CALL LIGHT WITHIN REACH. EDUCATED THE PATIENT TO USE THE CALL LIGHT TO CALL FOR ASSISTANCE. DENIES PAIN AT THIS TIME. LEFT ELBOW IN SPLINT. ALL NEEDS ARE MET. SPO2 96 % ON 2L. WILL ENDORSE TO THE LICENSED PROFESSIONAL COUNSELOR NURSE FOR VANESA.
--- NOTE | 2017-08-30 19:30 | NUR ---
ZACH MS NOTES RECEIVED PATIENT IN BED, AWAKE ALERT AND ORIENTED X2-3 FORGETFUL, ABLE TO MAKE SIMPLE NEEDS KNOWN, NOTED CAREGIVER AT BEDSIDE, RESPIRATIONS EVEN AND UNLABORED, ON O2 2 LITERS VIA NC, DENIES ANY PAIN OR DISCOMFORT AT THIS TIME, IV TO RIGHT HAND INTACT AND PATENT BUMEX RUNNING ORDERED. NO REDNESS , NO INFILTRATION PRESENT TO SITE, ORIENTED TO STAFF, ROOM AND CALL LIGHT , KEPT WITHIN REACH, SAFETY MEASURES IN PLACE, NEEDS ATTENDED AT THIS TIME, WILL CONTINUE TO MONITOR. Addendum: 08/30/17 at 2009 by TREMAYNE NUGENT RN ZACH MS OPENING NOTES
--- NOTE | 2017-08-30 19:50 | NUR ---
rn initial notes: received report from nicole tolentino, pt in bed, awake, a/o x2-3, on 2l via nc respiration even and unlabored, caregiver at bed side. pt scheduled for us guided thoracentesis scheduled today but unable to do it, will be schedule for tomorrow. per day rn she got the consent ready for the pt. iv access on right hand g20 patent and flushing well, on hl, although noted with dried blood on dressing. ble offloaded. left arm in a splint/cast. left arm radial pulse palpable and present, with good capillary refill noted, pt able to move left hands, denies any numbness tingling sensation on left arm. safety precautions for fall initiated, call light in reach, will continue monitoring pt. Addendum: 09/01/17 at 0416 by MARISOL MERRILL RN disregard above documentation: wrong entry of date
[2017-08-30 20:00] VITALS: BP 94/60
--- NOTE | 2017-08-31 05:53 | NUR ---
RN MS NOTES PATIENT WEIGHT TAKEN WITH BED SCALE, PILLOWS, EXTRA SHEETS REMOVED, STRICTLY WEIGHING PATIENT NOTED AT 103.
--- NOTE | 2017-08-31 06:44 | NUR ---
RN MS CLOSING NOTES PATIENT IN BED, AWAKE ALERT AND ORIENTED X2-3 FORGETFUL, ABLE TO MAKE SIMPLE NEEDS KNOWN, RESPIRATIONS EVEN AND UNLABORED, ON O2 2 LITERS VIA NC, DENIES ANY PAIN OR DISCOMFORT AT THIS TIME, IV TO RIGHT HAND 20#GAUGE INTACT AND PATENT,NO REDNESS , NO INFILTRATION PRESENT TO SITE, CALL LIGHT KEPT WITHIN REACH RD BANDAGE CHANGED TO LEFT ARM DUE TO SOILED WET. TOLERATED WELL. SAFETY MEASURES IN PLACE,PERINEAL CARE PROVIDED ALL LINENS CHANGED ,BED BATH GIVEN , NEEDS ATTENDED AT THIS TIME, WILL CONTINUE TO MONITOR AND ENDORSE TO NEXT SHIFT
--- NOTE | 2017-08-31 06:49 | NUR ---
RN MS NOTES NOTED WITH OPENING TO SACRAL AREA. AWAITING WOUND CONSULT, SITE CLEANSED AND APPLIED Z GUARD AND COVERED WITH MEPLIX, OFFLOADED. RESPOSITIONED.
[2017-08-31 08:00] VITALS: BP 101/61
--- NOTE | 2017-08-31 08:00 | NUR ---
RN NOTES RECEIVED PATIENT IN THE BED A/O X2/3, CONFUSED AND FORGETFUL. PATIENT ON O2 2L NC, DIMINISHED RIGHT LUNG SOUNDS. HELD BP MEDICATION BECAUSE OF LOW BP- 101/66, P-88. ASSIST PATIENT TURN AND REPOSTION Q 2 HR. PATIENT HAS A SMALL WOUND ON SACRAL AREA, APPLIED Z-GUARD, AND COVERED WITH MEPILEX. KEEP HOB ELEVATED. ALSO ELEVATED LOWER EXTREMITIES BECAUSE OF EDEMA. IV ACCESS ON RIGHT HAND INTACT. PRIVET CDL FLATBED TRUCK DRIVER NEXT TO THE BED. CALL LIGHT WITHIN TO REACH, SAFETY PRECAUTION MAINTAINED ALL THE TIME. CALL LIGHT WITHIN TO REACH.
[2017-08-31] MEDS: CARVEDILOL 12.5 MG TABLET PO SCH (08:13)
[2017-08-31 08:19] LABS: HEMATOCRIT 50 % (33-45); HEMOGLOBIN 16.3 g/dL (11.5-14.8); LYMPHOCYTES # (AUTO) 0.9 /CMM (0.8-4.8); LYMPHOCYTES % (AUTO) 24.2 % (20.0-44.0); MEAN CORPUSCULAR HGB CONC 33 g/dl (31.0-36.0); MEAN CORPUSCULAR VOLUME 94 fL (82-100); MONOCYTES # (AUTO) 0.4 /CMM (0.1-1.30); MONOCYTES % (AUTO) 9.5 % (2.0-12.0); NEUTROPHILS # (AUTO) 2.4 /CMM (1.8-8.9); NEUTROPHILS % (AUTO) 64.3 % (43.0-81.0); PLATELET COUNT (AUTO) 190 /CMM (150-450); RDW COEFFICIENT OF VARIATION 19.4 (11.5-15.0); RED BLOOD CELL COUNT(AUTO) 5.33 MIL/uL (4.0-5.2); WHITE BLOOD COUNT (AUTO) 3.7 K/uL (4.3-11.0)
[2017-08-31 09:49] LABS: ALANINE AMINOTRANSFERASE 23 U/L (12-78); ALBUMIN 3.3 g/dL (3.4-5.0); ALKALINE PHOSPHATASE 97 U/L (46-116); ASPARTATE AMINOTRANSFERASE 33 U/L (15-37); BILIRUBIN,TOTAL 1.5 mg/dL (0.2-1.0); CALCIUM, SERUM 9.4 mg/dL (8.5-10.1); CHLORIDE 96 mmol/L (98-107); CREATININE 0.8 mg/dL (0.6-1.3); GLUCOSE 129 mg/dL (74-106); MAGNESIUM 1.8 mg/dL (1.8-2.4); PHOSPHORUS 2.7 mg/dL (2.5-4.9); POTASSIUM 3.1 mmol/L (3.5-5.1); SODIUM SERUM 139 mmol/L (136-145); TOTAL PROTEIN, SERUM 6.6 g/dL (6.4-8.2); UREA NITROGEN, BLOOD 21 mg/dL (7-18)
[2017-08-31 09:51] LABS: CARBON DIOXIDE 41 mmol/L (21-32)
[2017-08-31] MEDS ORDERED: POTASSIUM CHLORIDE 20 MEQ TAB.PRT.SR PO ONE (10:00)
--- NOTE | 2017-08-31 10:00 | NUR ---
RN NOTES GET LAB RESULT CO2 41. NOTIFIED CAMILO BELLA AND GET ORDER STAT ABG . ORDER TAKEN AND CARRIED OUT.
[2017-08-31 10:26] LABS: ABG BASE EXCESS 14.4 mmol/L; ABG OXYGEN SATURATION 97.4 % (92.0-98.5); ABG PCO2 53.4 mmHg (35.0-45.0); ABG PH 7.497 (7.350-7.450); ABG PO2 92.4 mmHg (75.0-100.0); AaDO2 73.3 mmHg; COHb 1.2 % (0.5-1.5); MetHb 0.5 % (0.0-1.5); O2Hb 95.7 % (94.0-97.0); SITE, ABG Right Radial; VENT MODE, BG NASALCANNULA
[2017-08-31] MEDS ORDERED: acetaZOLAMIDE SODIUM 500 MG/VIAL VIAL IV ONE (12:30)
[2017-08-31] MEDS: DIGOXIN 0.125 MG TABLET PO SCH (13:24)
[2017-08-31] MEDS: IPRATROPIUM NEB FS 0.5 MG/2.5 ML AMPUL.NEB NEB SCH ×2 (13:30→20:05)
--- NOTE | 2017-08-31 13:40 | NUR ---
RN NOTES RESULT OF ABG CAMILO FOOD CRITIC AWARE OF. SEEN PATIENT BY GRAIN COMMODITY MANAGER Dr YAÑZE. GET NEW ORDER FOR PARACENTESIS. ORDER TAKEN AND CARRIED OUT. AFTER 20 MINUTES BEDSIDE DETAIL ABOUT PROCEDURE PATIENT SIGN CONSENT FORM. ASSIST TURN AND REPOSTION Q 2 HR. KEEP ELEVATED LEFT ARM, AND LOWER EXTREMITIES. CONTINUED MONITORING.
--- NOTE | 2017-08-31 15:23 | NUR ---
SPOKEN TO RADIOLOGIST DR. SEE OVER THE PHONE REGARDING U/S GUIDED THORACENTESIS, HE HAS SPOKEN TO ORDERING DR. YAÑEZ AND AGREED TO DO THE PROCEDURE 1ST THING IN THE MORNING FRIDAY (09/01/17)
--- NOTE | 2017-08-31 15:25 | NUR ---
RN NOTES PER TECH JEANNINE SPOKEN DR YAÑEZ, AND RADIOLOGIST, THORACENTESIS GOING TO BE DONE 09/01/16. CONTINUED MONITORING.
[2017-08-31 16:00] VITALS: BP 108/57
[2017-08-31] MEDS: CARVEDILOL 6.25 MG TABLET PO SCH (17:17)
--- NOTE | 2017-08-31 17:17 | NUR ---
RN NOTES SCHEDULED MEDICATION ADMINISTERED, PATIENT RESTING IN THE BED, NO ACUTE RESPIRATORY DISTRESS. V/S STABLE, NO SOB, ASSIST TURN AND REPOSTION Q 2HR. PRIVATE SPECIAL EDUCATION ADMINISTRATOR NEXT TO THE BED, CALL LIGHT WITHIN TO REACH. CONTINUED MONITORING.
--- NOTE | 2017-08-31 18:30 | NUR ---
RN NOTES PATIENT ON O2-2L NC, NO ACUTE RESPIRATORY DISTRESS, V/S STABLE, ASSIST TURN AND REPOSTION Q 2 HR. CALL LIGHT WITHIN TO REACH. ENDORSED ONCOMING NURSE FOR PLAN OF CARE.
--- NOTE | 2017-08-31 19:50 | NUR ---
rn initial notes: received report from nicole tolentino, pt in bed, awake, a/o x2-3, on 2l via nc respiration even and unlabored, caregiver at bed side. pt scheduled for us guided thoracentesis scheduled today but unable to do it, will be schedule for tomorrow. per day rn she got the consent ready for the pt. iv access on right hand g20 patent and flushing well, on hl, although noted with dried blood on dressing. ble offloaded. left arm in a splint/cast. left arm radial pulse palpable and present, with good capillary refill noted, pt able to move left hands, denies any numbness tingling sensation on left arm. safety precautions for fall initiated, call light in reach, will continue monitoring pt.
[2017-08-31 20:00] VITALS: BP 90/47
--- NOTE | 2017-08-31 20:05 | NUR ---
rn notes: noted consent secured by day rn was incomplete, a new consent , more specific and complete/precise was prepared, explained to the pt about the procedure, risk and benefits, pt was given explanation too by md/pulmo during the day, caregiver at bed side to witness, pt signed the procedure consent and anesthesia consent. per psych md, pt okay to make her own consent.
[2017-08-31 21:31] VITALS: BP 90/47
[2017-08-31 22:00] VITALS: BP 100/68
--- NOTE | 2017-08-31 22:00 | NUR ---
rn notes: offered snack for the pt, consumed 1005, no aspiration noted.
[2017-09-01] VITALS (12 sets, daily range): BP systolic 102–117; BP diastolic 55–78
[2017-09-01] MEDS: IPRATROPIUM NEB FS 0.5 MG/2.5 ML AMPUL.NEB NEB SCH ×4 (01:34→19:46)
[2017-09-01 06:20] LABS: BASOPHILS % (AUTO) 0.8 % (0.0-2.0); EOSINOPHILS % (AUTO) 1.8 % (0.0-6.0); HEMATOCRIT 44 % (33-45); HEMOGLOBIN 14.6 g/dL (11.5-14.8); LYMPHOCYTES # (AUTO) 1.3 /CMM (0.8-4.8); LYMPHOCYTES % (AUTO) 35.7 % (20.0-44.0); MEAN CORPUSCULAR HGB CONC 33 g/dl (31.0-36.0); MEAN CORPUSCULAR VOLUME 94 fL (82-100); MONOCYTES # (AUTO) 0.4 /CMM (0.1-1.30); MONOCYTES % (AUTO) 12.6 % (2.0-12.0); NEUTROPHILS # (AUTO) 1.7 /CMM (1.8-8.9); NEUTROPHILS % (AUTO) 49.1 % (43.0-81.0); PLATELET COUNT (AUTO) 125 /CMM (150-450); RDW COEFFICIENT OF VARIATION 18.7 (11.5-15.0); RED BLOOD CELL COUNT(AUTO) 4.69 MIL/uL (4.0-5.2); WHITE BLOOD COUNT (AUTO) 3.6 K/uL (4.3-11.0)
[2017-09-01 06:34] LABS: INR 1.15 (0.87-1.13)
--- NOTE | 2017-09-01 06:42 | NUR ---
RN CLOSING NOTES: PT IN BED, AWAKE, REMAINS A/O X2-3, ON 2L VIA NC RESPIRATION EVEN AND UNLABORED. IV ACCESS REMAINS IN PLACED, PATENT AND FLUSHING WELL, ON HL. LEFT ARM CAST REMAINS IN PLACED. PT FOR LEFT LUNG ULTRASOUND GUIDED THORACENTESIS TODAY, CONSENT SECURED, CHECKLIST COMPLETED. VS REMAINS STABLE, NEEDS ATTENDED. SAFETY PRECAUTIONS FOR FALL REMAINS ENGAGED, CALL LIGHT IN REACH. WILL ENDORSE TO DAY RN FOR VANESA.
[2017-09-01 08:23] LABS: CALCIUM, SERUM 9.1 mg/dL (8.5-10.1); CARBON DIOXIDE 33 mmol/L (21-32); CHLORIDE 101 mmol/L (98-107); CREATININE 0.7 mg/dL (0.6-1.3); GLUCOSE 87 mg/dL (74-106); POTASSIUM 3.8 mmol/L (3.5-5.1); SODIUM SERUM 136 mmol/L (136-145); UREA NITROGEN, BLOOD 19 mg/dL (7-18)
--- NOTE | 2017-09-01 08:50 | NUR ---
RN NOTES REMOVED FLUIDS FROM LEFT LUNG AT THIS TIME BY RADIOLOGIST Dr BLISS WITH US GUIDE THORACENTESIS 750 ML. SEND SEDIMENT TO THE LAB .
[2017-09-01] MEDS: CARVEDILOL 6.25 MG TABLET PO SCH ×2 (09:00→17:00)
[2017-09-01] MEDS: acetaZOLAMIDE SODIUM 500 MG/VIAL VIAL IV SCH (09:24)
--- NOTE | 2017-09-01 10:00 | NUR ---
RN NOTES PATIENT NPO AT THIS TIME SCHEDULED TO SURGERY.
--- NOTE | 2017-09-01 11:17 | NUR ---
WOUND CARE CONSULT: PT PRESENTS WITH STAGE 3 ULCER TO SACRAL AREA, AND DRY LESIONS TO EARS, PRESENT ON ADMISSION. RECOMMENDATIONS MADE FOR SKIN PROTECTION AND WOUND CARE. DISCUSSED WITH NURSING STAFF. BLANCHABLE REDNESS NOTED TO BACK. PT IS VERY THIN AND BONY. PT ON CONG ISOFLEX LOW AIRLOSS BED. ALL SKIN PROTECTION MEASURES IN PLACE. WILL SEE PRN. APARICIO IN AGREEMENT WITH PLAN OF CARE. Addendum: 09/01/17 at 1119 by PIEDAD FROST WNDNU Amended: Links added.
[2017-09-01] MEDS ORDERED: HYDROGEL DRESSING 90 GM TUBE TP PRN (11:30)
[2017-09-01] MEDS: HYDROGEL DRESSING 90 GM TUBE TP SCH (11:30)
[2017-09-01] MEDS: DIGOXIN 0.125 MG TABLET PO SCH (12:15)
--- NOTE | 2017-09-01 15:35 | NUR ---
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
[2017-09-01] MEDS ORDERED: ANESTHESIA TRAY IN PYXIS 1 EA TRAY MC ONE (16:05)
[2017-09-01] MEDS ORDERED: BACITRACIN 50000 UNITS/VIAL ONE (16:06)
[2017-09-01] MEDS ORDERED: BUPIVACAINE 0.25% 75 MG/30 ML VIAL ONE (16:06)
[2017-09-01] MEDS ORDERED: SUCCINYLCHOLINE CHLORIDE 20 MG/ML VIAL ONE (16:09)
[2017-09-01] MEDS ORDERED: FENTANYL PF 100MCG/2ML AMPUL ONE (16:10)
--- NOTE | 2017-09-01 18:22 | NUR ---
RN NOTES 1700 MEDICATION UNABLE TO ADMINISTERED BECAUSE PATIENT STILL ON SURGERY.
--- NOTE | 2017-09-01 18:50 | NUR ---
RN NOTES PATIENT BACK FROM SURGERY ON O2 2L 97 NC, NO RESPIRATORY DISTRESS, V/S TAKEN BP- 116/66, P-97, R-17, T-97,6. PATIENT HAS A DRESSING LEFT ARM, NO DISCHARGE NOTED. APPLIED ICE BAG, PATIENT REFUSED PAIN AT THIS TIME. MD ORDER TAKEN AND CARRIED OUT, NO WEIGHT BEARING LEFT ARM, REASSUME PREVIEWS ORDERS. ENDORSED ONCOMING NURSE FOR PLAN OF CARE.
--- NOTE | 2017-09-01 19:15 | NUR ---
patient received from or on a [facility] accompanied by er nurse am rn at bedside and recived report.
--- NOTE | 2017-09-01 19:46 | NUR ---
MS/RN OPENING NOTES PATIENT IN BED, RESPIRATIONS EVEN AND UNLABORED, RESTING, APPEAR WEAK, RECEIVED FROM OPERATING ROOM AFTER SURGERY OF LEFT ELBOW, ORIF, VITAL SIGNS CHECK 117/71, PULSE 85, O2 SAT 2L AT 100%, . SKIN WARM TO TOUCH, RECEIVED ENDORESEMENT FROM AM RN TO VANESA, MONITORING ANY CHANGES. BED IN LOCK POSITION.CALL LIGHTS WITHIN REACH.
--- NOTE | 2017-09-01 20:00 | NUR ---
per dr. robertson to resume previous orders, apply ice on site
--- NOTE | 2017-09-01 20:01 | NUR ---
MS/RN NOTES LEFT ARM WITH DRESSING AND SLING, , INTACT AND DRY.
[2017-09-01] MEDS: ANCEF 1 GM/50 ML D5W IV SCH ×2 (23:41)
[2017-09-02 01:00] VITALS: BP 101/67
[2017-09-02] MEDS: IPRATROPIUM NEB FS 0.5 MG/2.5 ML AMPUL.NEB NEB SCH ×3 (01:37→14:18)
[2017-09-02 02:00] VITALS: BP 105/68
[2017-09-02 06:19] LABS: BASOPHILS % (AUTO) 0.2 % (0.0-2.0); HEMATOCRIT 49 % (33-45); HEMOGLOBIN 15.9 g/dL (11.5-14.8); LYMPHOCYTES # (AUTO) 0.7 /CMM (0.8-4.8); MEAN CORPUSCULAR HGB CONC 33 g/dl (31.0-36.0); MEAN CORPUSCULAR VOLUME 94 fL (82-100); MONOCYTES # (AUTO) 0.6 /CMM (0.1-1.30); MONOCYTES % (AUTO) 10.8 % (2.0-12.0); NEUTROPHILS # (AUTO) 4.7 /CMM (1.8-8.9); PLATELET COUNT (AUTO) 136 /CMM (150-450); RDW COEFFICIENT OF VARIATION 18.9 (11.5-15.0); RED BLOOD CELL COUNT(AUTO) 5.17 MIL/uL (4.0-5.2)
[2017-09-02 06:45] LABS: CALCIUM, SERUM 9.2 mg/dL (8.5-10.1); CARBON DIOXIDE 27 mmol/L (21-32); CHLORIDE 100 mmol/L (98-107); CREATININE 0.7 mg/dL (0.6-1.3); GLUCOSE 132 mg/dL (74-106); POTASSIUM 4.3 mmol/L (3.5-5.1); SODIUM SERUM 134 mmol/L (136-145); UREA NITROGEN, BLOOD 23 mg/dL (7-18)
--- NOTE | 2017-09-02 07:23 | NUR ---
324-1 MS/RN NOTES PATIENT ABLE TO SLEEP DURING THE NIGHT, CAN AWAKEN EASILY AND VERBALIZES NEEDS, NO PAIN REPORTED OR VERBALIZED, ASPIRATIONS PROTOCOL, KEEP SAFETY, WILL ENDORSE TO AM RN FOR VANESA
--- NOTE | 2017-09-02 07:45 | NUR ---
M/S RN - Assessment Patient awake, A/O x 1-2, confused, reality orientation provided, POD#1 left elbow ORIF by Dr. Choudhary, dressing C/D/I without drainage, discharge, no surrounding erythema, or excess warmth, able to move fingers, sling in place. Per ortho, NWB on LUE and maintain LUE splint at all times. Patient s/p left lung thoracentesis, denies SOB, states feeling better. Saline lock on the right hand is patent, intact, with no signs of infiltration. Fall and aspiration precautions maintained. All needs attended and met. Will continue with current treatment plan.
[2017-09-02 08:00] VITALS: BP 103/64
[2017-09-02] MEDS: acetaZOLAMIDE SODIUM 500 MG/VIAL VIAL IV SCH (08:10)
[2017-09-02] MEDS: CARVEDILOL 6.25 MG TABLET PO SCH ×2 (08:11→16:48)
[2017-09-02] MEDS: ANCEF 1 GM/50 ML D5W IV SCH ×4 (08:11→15:24)
[2017-09-02] MEDS: HYDROGEL DRESSING 90 GM TUBE TP SCH (08:12)
[2017-09-02] MEDS: DIGOXIN 0.125 MG TABLET PO SCH (12:07)
[2017-09-02 16:00] VITALS: BP 112/80
--- NOTE | 2017-09-02 16:30 | NUR ---
M/S RN - Notes Patient feeling better, A/O x 2, stable for discharge tonight to [facility], ambulance ETA 18:30. Reviewed discharge instructions with Amaris SERRANO, NWB on LUE, maintain sling on LUE at all times, f/u with Dr. Choudhary in 2 weeks. RN verbalized full understanding and all questions answered to her satisfaction.
--- NOTE | 2017-09-02 19:05 | NUR ---
RN OPENING NOTES RECEIVED REPORT THAT PATIENT IS READY FOR DISCHARGE, AWAITING FOR TRANSFER TO [facility]. RECEIVED PATIENT IN BED, ASLEEP BUT EASILY AROUSABLE, NO SO NOTED, BREATHING EVEN AND UNLABORED, IN NO DISTRESS. PLACED CALL LIGHT WITHIN EASY REACH, BED IN LOW POSITION AND LOCKED IN PLACE. CAREGIVER PRESENT AT BEDSIDE. WILL CONTINUE TO MONITOR PATIENT WHILE WAITING FOR TRANSPORTATION.
[2017-09-02 19:45] VITALS: BP 103/54
--- NOTE | 2017-09-02 20:00 | NUR ---
TELEVISION DIRECTOR NOTES PATIENT PICKED UP BY 2 PERSONNEL OF [facility]BUL TRANSPORTATION. SAFELY TRANSFERRED FROM BED TO [facility]. PT ALERT AND ORIENTED TO SELF, VERBALLY RESPONSIVE, NO SOB, TOLERATING ROOM AIR WITH O2 SAT @ 95%, IN NO ACUTE DISTRESS. ALL PATIENT'S NEEDS ATTENDED TO, IV HEPLOCK ON RIGHT HAND G#20 REMOVED, PT TOLERATED PROCEDURE WELL, NOTED WITH NO BLEEDING, NO S/S OF INFECTION ON SITE. PT WITH SPLINT ON LEFT ARM WITH SLING ON. PT TRANSFERRED FROM BED TO [facility] AND EXITED THE UNIT SAFELY.
[2017-09-03] MEDS ORDERED: FUROSEMIDE 40 MG TABLET PO SCH (09:00)
== END 2017-09-02 19:55 | DRG 510 ==
LOC: ER 10:01 → TELE 14:16 → MED 08-30 11:27
PROVIDERS: ADMIT Nurse Practitioner Acute Care; ATTEND Nurse Practitioner Acute Care
PROC: 0W9B3ZZ Drainage of Left Pleural Cavity, Percutaneous Approach (ICD-10-PCS; 2017-09-01)
PROC: 0PSL04Z Reposition Left Ulna with Internal Fixation Device, Open Approach (ICD-10-PCS; principal; 2017-09-01 16:40)
DX: S52.022A Displaced fracture of olecranon process without intraarticular extension of left ulna, initial encounter for closed fracture (principal); I50.33 Acute on chronic diastolic (congestive) heart failure; E44.0 Moderate protein-calorie malnutrition; E87.3 Alkalosis; J90 Pleural effusion, not elsewhere classified; D69.6 Thrombocytopenia, unspecified; I36.1 Nonrheumatic tricuspid (valve) insufficiency; R06.89 Other abnormalities of breathing; I48.2 Chronic atrial fibrillation; Z68.1 Body mass index [BMI] 19.9 or less, adult; E78.5 Hyperlipidemia, unspecified; E80.6 Other disorders of bilirubin metabolism; F43.22 Adjustment disorder with anxiety; I34.1 Nonrheumatic mitral (valve) prolapse; R79.89 Other specified abnormal findings of blood chemistry; Z95.0 Presence of cardiac pacemaker; W18.30XA Fall on same level, unspecified, initial encounter; I11.0 Hypertensive heart disease with heart failure; Y92.89 Other specified places as the place of occurrence of the external cause; R09.02 Hypoxemia; Z53.09 Procedure and treatment not carried out because of other contraindication; Z79.01 Long term (current) use of anticoagulants; T50.2X5A Adverse effect of carbonic-anhydrase inhibitors, benzothiadiazides and other diuretics, initial encounter; F03.90 Unspecified dementia, unspecified severity, without behavioral disturbance, psychotic disturbance, mood disturbance, and anxiety
CPT/HCPCS: 36415; 36600; 70450-TC; 71045-TC; 72170-TC; 73030-TC; 73070-TC; 73080-TC; 76942-TC; 80048-TC; 80053-TC; 80061-TC; 80162-TC; 81000-TC; 83605-TC; 83735-TC; 83880; 84100-TC; 84484-TC; 85025-TC; 85610-TC; 85730-TC; 86850-TC; 87070-TC; 87075-TC; 87081-TC; 87102-TC; 89051-TC; A4216; A4565; A4606; A6248; A6402; J0330; J0690; J1100; J1120; J1885; J1940; J2704; J3010; J3475; J3490; J7050; J7060; Z7610